=== PATIENT | male | born 1940 | race Caucasian/White ===

== ENCOUNTER 2017-02-15 16:07 | Observation (INO) ==
[2017-02-15] MEDS ORDERED: ASPIRIN 325 MG TABLET PO STA (17:16)
[2017-02-15] MEDS ORDERED: ENOXAPARIN 100 MG/ML SYRINGE SUBCUT STA (17:16)
[2017-02-15] MEDS ORDERED: MORPHINE 2 MG/1 ML SYRINGE IV PRN (17:16)
[2017-02-15] MEDS ORDERED: ONDANSETRON 4 MG/2 ML VIAL IV PRN ×2 (17:16→19:28)
[2017-02-15 17:22] LABS: Basophils % 0.3 % (0.0-0.8); Eosinophils # 0.2 10*3/uL (0.0-0.87); Eosinophils % 2.1 % (0.00-10.9); Hematocrit 39.8 VOL% (42.0-52.0); Hemoglobin 13.8 GM/DL (14.0-18.0); Immature Granulocytes % 0.4 %; Immature Granulocytes Absolute 0.03 #; Lymphocytes # 0.9 10*3/uL (1.4-4.0); Mean Corpuscular HGB Conc 34.7 GM/DL (32-36); Mean Corpuscular Hemoglobin 32 PG (27-34); Mean Corpuscular Volume 93.2 FL (87-102); Mean Platelet Volume 10.8 FL (9.6-12.0); Monocytes # 0.4 10*3/uL (0.11-0.8); Monocytes % 4.9 % (1.7-12.7); Neutrophils # 5.8 10*3/uL (1.4-7.4); Neutrophils % 80.3 % (38.7-73.9); Platelet Count 178 T/CUMM (130-400); Red Blood Count 4.27 MC/CUMM (3.8-5.5); Red Cell Distribution Width 13.1 % (9.3-17.3); White Blood Count 7.2 T/CUMM (4-12)
[2017-02-15] MEDS ORDERED: ASPIRIN 325 MG TABLET ONE (17:29)
[2017-02-15] MEDS ORDERED: ENOXAPARIN 80 MG/0.8 ML SYRINGE SUBCUT ONE (17:29)
[2017-02-15 17:35] LABS: Partial Thromboplastin Time 27.8 SECS (0-40)
[2017-02-15] MEDS ORDERED: ONDANSETRON 4 MG/2 ML VIAL ONE (17:39)
[2017-02-15] MEDS ORDERED: MORPHINE 2 MG/1 ML SYRINGE ONE (17:40)
[2017-02-15 17:45] LABS: Albumin 3.8 G/DL (3.4-5.0); Bilirubin,Total 0.4 MG/DL (0.2-1.0); Magnesium 2.2 MG/DL (1.8-2.4); Osmolality,Calculated 279.7 MOS/KG (273-304); Potassium 4.2 MMOL/L (3.5-5.1); Total Protein 7.4 G/DL (6.4-8.3); Troponin I Only 0.021 NG/ML (0.00-0.045)
[2017-02-15] MEDS ORDERED: ACETAMINOPHEN 325 MG TABLET PO PRN (19:28)
[2017-02-15] MEDS ORDERED: ALBUTEROL/IPRATROPIUM 3 ML NEB RESP TX PRN (19:28)
[2017-02-15] MEDS ORDERED: LEVOFLOXACIN INJ 500 MG in PREMIX 1 EACH IV ONE (19:28)
[2017-02-15 20:20] LABS: Apearance,Urine CLEAR (Clear); Bilirubin,Urine Negative (Negative); Blood, Urine Small mg/dL (Negative); Glucose,Urine (UA) Negative (Negative); Hyaline Casts,Urine 5 /LPF (0-3); Ketones,Urine Negative (Negative); Mucus,Urine Occasional /LPF (Occasional); Nitrite,Urine Negative (Negative); Protein,Urine 100 MG/DL; RBC,Urine 2 /HPF (0-4); Urine Color Yellow (Yellow); Urine Specific Gravity 1.019 (1.001-1.035); Urine Urobilinogen < 2.0 EU/DL (0.2-1.0); WBC,Urine 1 /HPF (0-6)
[2017-02-15 20:31] LABS: Troponin I Only 0.023 NG/ML (0.00-0.045)
[2017-02-15] MEDS: CARVEDILOL 3.125 MG TABLET PO SCH (23:41)
[2017-02-15] MEDS: SIMVASTATIN 40 MG TABLET PO SCH (23:41)
[2017-02-15] MEDS: FERROUS SULFATE 325 MG TABLET PO SCH (23:41)
[2017-02-16 02:26] LABS: Basophils % 0.3 % (0.0-0.8); Eosinophils # 0.1 10*3/uL (0.0-0.87); Eosinophils % 2.1 % (0.00-10.9); Hemoglobin 11.8 GM/DL (14.0-18.0); Immature Granulocytes % 0.3 %; Immature Granulocytes Absolute 0.02 #; Lymphocytes # 0.9 10*3/uL (1.4-4.0); Lymphocytes % 14.1 % (21.2-54.2); Mean Corpuscular HGB Conc 34.7 GM/DL (32-36); Mean Corpuscular Hemoglobin 32 PG (27-34); Mean Corpuscular Volume 93.2 FL (87-102); Mean Platelet Volume 10.9 FL (9.6-12.0); Monocytes # 0.4 10*3/uL (0.11-0.8); Monocytes % 6.6 % (1.7-12.7); Neutrophils # 4.7 10*3/uL (1.4-7.4); Neutrophils % 76.6 % (38.7-73.9); Platelet Count 140 T/CUMM (130-400); Red Blood Count 3.65 MC/CUMM (3.8-5.5); White Blood Count 6.2 T/CUMM (4-12)
[2017-02-16 03:16] LABS: Troponin I Only 0.029 NG/ML (0.00-0.045)
[2017-02-16 03:26] LABS: Calcium 8.1 MG/DL (8.5-10.1); Potassium 4.3 MMOL/L (3.5-5.1)
[2017-02-16 07:07] LABS: Troponin I Only 0.026 NG/ML (0.00-0.045)
[2017-02-16] MEDS: LEVOTHYROXINE 25 MCG TABLET PO SCH (09:20)
[2017-02-16] MEDS: amLODIPine 5 MG TABLET PO SCH (09:20)
[2017-02-16] MEDS: CARVEDILOL 3.125 MG TABLET PO SCH ×2 (09:20→20:50)
[2017-02-16] MEDS: ASPIRIN EC 81 MG TABLET PO SCH (09:20)
[2017-02-16] MEDS: FERROUS SULFATE 325 MG TABLET PO SCH ×2 (09:20→20:50)
[2017-02-16] MEDS: CLOPIDOGREL 75 MG TABLET PO SCH (09:20)
[2017-02-16] MEDS: BUDESONIDE/FORMOTEROL 160-4.5 INHALER 6 GM INH SCH (09:24)
[2017-02-16] MEDS ORDERED: MORPHINE 2 MG/1 ML SYRINGE IV ONE (12:05)
[2017-02-16] MEDS: ALBUTEROL/IPRATROPIUM 3 ML NEB RESP TX SCH ×2 (13:49→20:12)
[2017-02-16] MEDS ORDERED: LEVOFLOXACIN INJ 250 MG in PREMIX 1 EACH IV SCH (20:00)
[2017-02-16] MEDS: SIMVASTATIN 40 MG TABLET PO SCH (20:49)
[2017-02-17] MEDS: ALBUTEROL/IPRATROPIUM 3 ML NEB RESP TX SCH ×2 (01:25→07:18)
[2017-02-17] MEDS: BUDESONIDE/FORMOTEROL 160-4.5 INHALER 6 GM INH SCH ×2 (01:42→08:32)
[2017-02-17 06:37] LABS: Basophils % 0.4 % (0.0-0.8); Eosinophils # 0.2 10*3/uL (0.0-0.87); Eosinophils % 4.6 % (0.00-10.9); Hematocrit 34.7 VOL% (42.0-52.0); Immature Granulocytes % 0.2 %; Immature Granulocytes Absolute 0.01 #; Lymphocytes # 1.2 10*3/uL (1.4-4.0); Lymphocytes % 23.5 % (21.2-54.2); Mean Corpuscular HGB Conc 34.6 GM/DL (32-36); Mean Corpuscular Hemoglobin 32 PG (27-34); Mean Corpuscular Volume 93.5 FL (87-102); Mean Platelet Volume 10.9 FL (9.6-12.0); Monocytes # 0.3 10*3/uL (0.11-0.8); Monocytes % 6.8 % (1.7-12.7); Neutrophils # 3.2 10*3/uL (1.4-7.4); Neutrophils % 64.5 % (38.7-73.9); Platelet Count 149 T/CUMM (130-400); Red Blood Count 3.71 MC/CUMM (3.8-5.5); Red Cell Distribution Width 13.2 % (9.3-17.3)
[2017-02-17 07:05] LABS: Calcium 8.6 MG/DL (8.5-10.1); Osmolality,Calculated 283.1 MOS/KG (273-304); Potassium 4.3 MMOL/L (3.5-5.1)
[2017-02-17 07:55] VITALS: BP 153/83
[2017-02-17] MEDS: ASPIRIN EC 81 MG TABLET PO SCH (08:30)
[2017-02-17] MEDS: LEVOTHYROXINE 25 MCG TABLET PO SCH (08:30)
[2017-02-17] MEDS: FERROUS SULFATE 325 MG TABLET PO SCH (08:30)
[2017-02-17] MEDS: CLOPIDOGREL 75 MG TABLET PO SCH (08:30)
[2017-02-17] MEDS: amLODIPine 5 MG TABLET PO SCH (08:30)
[2017-02-17] MEDS: CARVEDILOL 3.125 MG TABLET PO SCH (08:30)
== END 2017-02-17 11:59 | disposition home or self-care (01) ==
LOC: N.EDINP 16:07 → N.ED 16:07 → N.2E 19:10
PROVIDERS: ADMIT Internal Medicine; ATTEND Internal Medicine

== ENCOUNTER 2017-04-23 17:35 | Inpatient (IN) ==
[2017-04-23 18:12] LABS: Basophils % 0.4 % (0.0-0.8); Eosinophils # 0.2 10*3/uL (0.0-0.87); Eosinophils % 3.3 % (0.00-10.9); Hematocrit 41.7 VOL% (42.0-52.0); Immature Granulocytes % 0.4 %; Immature Granulocytes Absolute 0.03 #; Lymphocytes # 1.1 10*3/uL (1.4-4.0); Lymphocytes % 16.2 % (21.2-54.2); Mean Corpuscular HGB Conc 33.6 GM/DL (32-36); Mean Corpuscular Hemoglobin 32 PG (27-34); Mean Corpuscular Volume 96.1 FL (87-102); Mean Platelet Volume 10.7 FL (9.6-12.0); Monocytes # 0.4 10*3/uL (0.11-0.8); Monocytes % 5.7 % (1.7-12.7); Neutrophils # 5.2 10*3/uL (1.4-7.4); Platelet Count 192 T/CUMM (130-400); Red Blood Count 4.34 MC/CUMM (3.8-5.5); Red Cell Distribution Width 13.6 % (9.3-17.3)
[2017-04-23 18:38] LABS: Calcium 9.3 MG/DL (8.5-10.1); Osmolality,Calculated 281.4 MOS/KG (273-304); Potassium 4.4 MMOL/L (3.5-5.1)
[2017-04-23] MEDS ORDERED: MAGNESIUM SULF RIDER 2 GM in PREMIX 1 EACH IV STA (20:41)
[2017-04-23] MEDS ORDERED: KETOROLAC 30 MG/1 ML VIAL IV STA (20:41)
[2017-04-23] MEDS ORDERED: methylPREDNISolone SOD SUC 125 MG/2 ML VIAL IV STA (20:41)
[2017-04-23] MEDS ORDERED: LEVOFLOXACIN INJ 750 MG in PREMIX 1 EACH IV STA (20:41)
[2017-04-23] MEDS ORDERED: ORPHENADRINE 60 MG/2 ML VIAL IV STA (20:41)
[2017-04-23] MEDS ORDERED: FUROSEMIDE 40 MG/4 ML VIAL IV STA (20:46)
[2017-04-23] MEDS ORDERED: ALBUTEROL 2.5 MG/3 ML NEB RESP TX SCH (21:00)
[2017-04-23] MEDS ORDERED: methylPREDNISolone SOD SUC 125 MG/2 ML VIAL ONE (21:09)
[2017-04-23] MEDS ORDERED: ORPHENADRINE 60 MG/2 ML VIAL ONE (21:09)
[2017-04-23] MEDS ORDERED: FUROSEMIDE 100 MG/10 ML VIAL ONE (21:09)
[2017-04-23] MEDS ORDERED: LEVOFLOXACIN INJ 150 ML IV ONE (21:09)
[2017-04-23] MEDS ORDERED: KETOROLAC 30 MG/1 ML VIAL ONE (21:09)
[2017-04-23] MEDS ORDERED: MAGNESIUM SULF RIDER 50 ML IV ONE (21:10)
[2017-04-23 21:17] LABS: INR 0.9; Partial Thromboplastin Time 26.4 SECS (0-40)
[2017-04-23 21:40] LABS: Troponin I Only < 0.015 NG/ML (0.00-0.045)
[2017-04-24] MEDS ORDERED: ONDANSETRON 4 MG/2 ML VIAL IV PRN (02:12)
[2017-04-24] MEDS ORDERED: NICOTINE 21 MG/24 HR PATCH TRANSDERM PRN (02:12)
[2017-04-24] MEDS ORDERED: ALBUTEROL/IPRATROPIUM 3 ML NEB RESP TX PRN (02:12)
[2017-04-24] MEDS: CLOPIDOGREL 75 MG TABLET PO SCH ×2 (03:02→20:43)
[2017-04-24] MEDS: amLODIPine 5 MG TABLET PO SCH ×2 (03:02→20:42)
[2017-04-24] MEDS: LEVOTHYROXINE 25 MCG TABLET PO SCH ×2 (03:02→20:43)
[2017-04-24] MEDS: FERROUS SULFATE 325 MG TABLET PO SCH ×2 (03:03→20:42)
[2017-04-24] MEDS: SIMVASTATIN 40 MG TABLET PO SCH ×2 (03:03→20:43)
[2017-04-24] MEDS: CARVEDILOL 3.125 MG TABLET PO SCH ×3 (03:03→20:43)
[2017-04-24] MEDS: ENOXAPARIN 40 MG/0.4 ML SYRINGE SUBCUT SCH (03:04)
[2017-04-24] MEDS: ALBUTEROL/IPRATROPIUM 3 ML NEB RESP TX SCH ×4 (04:55→20:12)
[2017-04-24] MEDS: methylPREDNISolone SOD SUC 40 MG/1 ML VIAL IV SCH ×2 (06:47→17:15)
[2017-04-24 06:53] LABS: Risk Ratio 3.07; Thyroid Stimulating Hormone 2.38 uIU/ml (0.358-3.74); VLDL CHOLESTEROL 11.4 MG/DL
[2017-04-24] MEDS: DOCUSATE SODIUM 100 MG CAPSULE PO SCH ×2 (08:53→20:43)
[2017-04-24] MEDS: PANTOPRAZOLE 40 MG TABLET PO SCH (08:53)
[2017-04-24 09:31] LABS: PT Patient Result 10.5 SECS; Partial Thromboplastin Time 28.7 SECS (0-40)
[2017-04-24] MEDS: ASPIRIN EC 81 MG TABLET PO SCH (20:43)
[2017-04-25] MEDS: methylPREDNISolone SOD SUC 40 MG/1 ML VIAL IV SCH ×3 (00:27→17:05)
[2017-04-25] MEDS: ALBUTEROL/IPRATROPIUM 3 ML NEB RESP TX SCH ×4 (01:10→19:44)
[2017-04-25] MEDS ORDERED: MORPHINE 2 MG/1 ML SYRINGE IV ONE (04:18)
[2017-04-25] MEDS ORDERED: MEPERIDINE 50 MG/1 ML VIAL IM ONE (07:00)
[2017-04-25] MEDS ORDERED: PROMETHAZINE 25 MG/1 ML VIAL IM ONE (07:00)
[2017-04-25] MEDS ORDERED: MIDAZOLAM 2 MG/2 ML VIAL ONE (07:02)
[2017-04-25] MEDS ORDERED: LIDOCAINE 1% 20 ML VIAL MISC INJ ONE (07:30)
[2017-04-25] MEDS ORDERED: LIDOCAINE 2% 20 ML VIAL RESP TX ONE (07:30)
[2017-04-25] MEDS ORDERED: MIDAZOLAM 2 MG/2 ML VIAL IV ONE (07:30)
[2017-04-25] MEDS: DOCUSATE SODIUM 100 MG CAPSULE PO SCH ×2 (10:22→21:21)
[2017-04-25] MEDS: CARVEDILOL 3.125 MG TABLET PO SCH ×2 (10:22→21:21)
[2017-04-25] MEDS: ENOXAPARIN 40 MG/0.4 ML SYRINGE SUBCUT SCH (10:22)
[2017-04-25] MEDS: PANTOPRAZOLE 40 MG TABLET PO SCH (10:22)
[2017-04-25] MEDS: DORNASE ALFA 2.5 MG/2.5 ML VIAL RESP TX SCH ×2 (10:28→19:54)
[2017-04-25] MEDS: CLOPIDOGREL 75 MG TABLET PO SCH (21:21)
[2017-04-25] MEDS: amLODIPine 5 MG TABLET PO SCH (21:21)
[2017-04-25] MEDS: FERROUS SULFATE 325 MG TABLET PO SCH (21:21)
[2017-04-25] MEDS: LEVOTHYROXINE 25 MCG TABLET PO SCH (21:21)
[2017-04-25] MEDS: ASPIRIN EC 81 MG TABLET PO SCH (21:22)
[2017-04-25] MEDS: SIMVASTATIN 40 MG TABLET PO SCH (21:26)
[2017-04-26] MEDS: ALBUTEROL/IPRATROPIUM 3 ML NEB RESP TX SCH ×2 (00:40→06:56)
[2017-04-26] MEDS: methylPREDNISolone SOD SUC 40 MG/1 ML VIAL IV SCH ×2 (00:55→08:34)
[2017-04-26] MEDS: DORNASE ALFA 2.5 MG/2.5 ML VIAL RESP TX SCH (06:56)
[2017-04-26 07:40] VITALS: BP 111/54
[2017-04-26] MEDS: PANTOPRAZOLE 40 MG TABLET PO SCH (08:34)
[2017-04-26] MEDS: ENOXAPARIN 40 MG/0.4 ML SYRINGE SUBCUT SCH (08:35)
[2017-04-26] MEDS: DOCUSATE SODIUM 100 MG CAPSULE PO SCH (08:35)
[2017-04-26] MEDS: CARVEDILOL 3.125 MG TABLET PO SCH (08:45)
== END 2017-04-26 11:16 | disposition home or self-care (01) | DRG 191 ==
LOC: N.ED 17:35 → N.EDINP 04-24 00:25 → N.2E 04-24 01:59
PROVIDERS: ADMIT Internal Medicine Geriatric Medicine; ATTEND Internal Medicine Geriatric Medicine
PROC: BRONCHB (2017-04-25 07:20)

== ENCOUNTER 2017-05-01 00:12 | Inpatient (IN) ==
[2017-05-01] MEDS ORDERED: MORPHINE 2 MG/1 ML SYRINGE IV STA (01:04)
[2017-05-01] MEDS ORDERED: FUROSEMIDE 100 MG/10 ML VIAL IV STA (01:04)
[2017-05-01] MEDS ORDERED: methylPREDNISolone SOD SUC 125 MG/2 ML VIAL IV STA (01:04)
[2017-05-01] MEDS ORDERED: FUROSEMIDE 40 MG/4 ML VIAL ONE (01:12)
[2017-05-01] MEDS ORDERED: MORPHINE 2 MG/1 ML SYRINGE ONE (01:12)
[2017-05-01] MEDS ORDERED: methylPREDNISolone SOD SUC 125 MG/2 ML VIAL ONE (01:13)
[2017-05-01] MEDS ORDERED: ALBUTEROL 2.5 MG/3 ML NEB RESP TX SCH (01:30)
[2017-05-01 01:37] LABS: Eosinophils # 0.2 10*3/uL (0.0-0.87); Eosinophils % 2.8 % (0.00-10.9); Hematocrit 37.2 VOL% (42.0-52.0); Hemoglobin 12.4 GM/DL (14.0-18.0); Immature Granulocytes % 1.1 %; Immature Granulocytes Absolute 0.08 #; Lymphocytes # 0.8 10*3/uL (1.4-4.0); Lymphocytes % 11.3 % (21.2-54.2); Mean Corpuscular HGB Conc 33.3 GM/DL (32-36); Mean Corpuscular Hemoglobin 32 PG (27-34); Mean Corpuscular Volume 96.1 FL (87-102); Mean Platelet Volume 11.3 FL (9.6-12.0); Monocytes # 0.5 10*3/uL (0.11-0.8); Monocytes % 7.3 % (1.7-12.7); Neutrophils # 5.8 10*3/uL (1.4-7.4); Neutrophils % 77.5 % (38.7-73.9); Platelet Count 141 T/CUMM (130-400); Red Blood Count 3.87 MC/CUMM (3.8-5.5); Red Cell Distribution Width 13.4 % (9.3-17.3); White Blood Count 7.4 T/CUMM (4-12)
[2017-05-01 01:49] LABS: INR 0.9; PT Patient Result 9.4 SECS
[2017-05-01 01:52] LABS: ABG Base Excess -2.4 MMOL/L (-2.5-2.5); ABG HCO3 22.4 MMOL/L (20-26); ABG Oxygen Saturation 98.4 % (95-100); ABG PCO2 37.4 MM HG (35-48); ABG PH 7.382 (7.35-7.45); ABG TCO2 19.7 MMOL/L (23-27)
[2017-05-01 02:04] LABS: Alanine Aminotransferase 14 U/L (16-61); Albumin 3.6 G/DL (3.4-5.0); Alkaline Phosphatase 102 U/L (45-117); Aspartate Amino Transferase 17 U/L (0-37); Blood Urea Nitrogen 30 MG/DL (7-18); Calcium 8.7 MG/DL (8.5-10.1); Glucose 110 MG/DL (74-106); Osmolality,Calculated 289.1 MOS/KG (273-304); Potassium 4.4 MMOL/L (3.5-5.1); Sodium 142 MMOL/L (136-145); Total Protein 6.8 G/DL (6.4-8.3); Troponin I Only 0.018 NG/ML (0.00-0.045)
[2017-05-01] MEDS ORDERED: MORPHINE 2 MG/1 ML SYRINGE IV PRN (03:30)
[2017-05-01] MEDS ORDERED: ONDANSETRON 4 MG/2 ML VIAL IV PRN (03:30)
[2017-05-01] MEDS ORDERED: ACETAMINOPHEN 325 MG TABLET PO PRN (03:30)
[2017-05-01 05:38] LABS: Basophils % 0.2 % (0.0-0.8); Eosinophils # 0.1 10*3/uL (0.0-0.87); Hematocrit 38.9 VOL% (42.0-52.0); Hemoglobin 13.6 GM/DL (14.0-18.0); Lymphocytes # 0.6 10*3/uL (1.4-4.0); Lymphocytes % 5.9 % (21.2-54.2); Mean Corpuscular Hemoglobin 33 PG (27-34); Mean Corpuscular Volume 93.5 FL (87-102); Mean Platelet Volume 11.5 FL (9.6-12.0); Monocytes # 0.2 10*3/uL (0.11-0.8); Monocytes % 2.3 % (1.7-12.7); Neutrophils # 8.7 10*3/uL (1.4-7.4); Neutrophils % 89.6 % (38.7-73.9); Platelet Count 168 T/CUMM (130-400); Red Blood Count 4.16 MC/CUMM (3.8-5.5); Red Cell Distribution Width 13.4 % (9.3-17.3); White Blood Count 9.7 T/CUMM (4-12)
[2017-05-01 06:07] LABS: Osmolality,Calculated 290.3 MOS/KG (273-304); Potassium 4.9 MMOL/L (3.5-5.1)
[2017-05-01] MEDS: ALBUTEROL/IPRATROPIUM 3 ML NEB RESP TX SCH ×3 (06:59→19:41)
[2017-05-01] MEDS ORDERED: CARVEDILOL 3.125 MG TABLET PO SCH (09:00)
[2017-05-01] MEDS: LEVOTHYROXINE 25 MCG TABLET PO SCH (09:55)
[2017-05-01] MEDS: methylPREDNISolone SOD SUC 40 MG/1 ML VIAL IV SCH ×2 (09:55→16:45)
[2017-05-01] MEDS: cefTRIAXone 1,000 MG in SYRINGE 1 EACH IV SCH (09:55)
[2017-05-01] MEDS: BUDESONIDE/FORMOTEROL 160-4.5 INHALER 6 GM INH SCH ×2 (09:55→21:20)
[2017-05-01] MEDS ORDERED: CLOPIDOGREL 75 MG TABLET PO SCH (21:00)
[2017-05-01] MEDS ORDERED: NON-FORMULARY MEDICATION (Omeprazole [Omeprazole] 20 MG) PO SCH (21:00)
[2017-05-01] MEDS ORDERED: amLODIPine 5 MG TABLET PO SCH (21:00)
[2017-05-01] MEDS: PANTOPRAZOLE 40 MG TABLET PO SCH (21:18)
[2017-05-01] MEDS: CARVEDILOL 6.25 MG TABLET PO SCH (21:18)
[2017-05-01] MEDS: ASPIRIN EC 81 MG TABLET PO SCH (21:19)
[2017-05-01] MEDS: FERROUS SULFATE 325 MG TABLET PO SCH (21:19)
[2017-05-01] MEDS: SIMVASTATIN 40 MG TABLET PO SCH (21:19)
[2017-05-02] MEDS: ALBUTEROL/IPRATROPIUM 3 ML NEB RESP TX SCH ×4 (00:18→19:42)
[2017-05-02] MEDS: methylPREDNISolone SOD SUC 40 MG/1 ML VIAL IV SCH ×4 (00:52→23:47)
[2017-05-02] MEDS ORDERED: PROMETHAZINE 25 MG/1 ML VIAL IM ONE (07:00)
[2017-05-02] MEDS ORDERED: MEPERIDINE 50 MG/1 ML VIAL IM ONE (07:00)
[2017-05-02] MEDS: LEVOTHYROXINE 25 MCG TABLET PO SCH (08:07)
[2017-05-02] MEDS ORDERED: LIDOCAINE 2% VISCOUS 100 ML BOTTLE SWISH/SPIT ONE (08:15)
[2017-05-02] MEDS ORDERED: LIDOCAINE 2% 20 ML VIAL RESP TX ONE (08:16)
[2017-05-02] MEDS ORDERED: MIDAZOLAM 2 MG/2 ML VIAL IV ONE (08:34)
[2017-05-02] MEDS ORDERED: LIDOCAINE 1% 20 ML VIAL MISC INJ ONE (08:40)
[2017-05-02] MEDS ORDERED: MIDAZOLAM 2 MG/2 ML VIAL ONE (08:58)
[2017-05-02] MEDS: CARVEDILOL 6.25 MG TABLET PO SCH ×2 (09:15→21:06)
[2017-05-02] MEDS: cefTRIAXone 1,000 MG in SYRINGE 1 EACH IV SCH (10:33)
[2017-05-02] MEDS: BUDESONIDE/FORMOTEROL 160-4.5 INHALER 6 GM INH SCH ×2 (13:00→21:06)
[2017-05-02] MEDS: FERROUS SULFATE 325 MG TABLET PO SCH (21:06)
[2017-05-02] MEDS: SIMVASTATIN 40 MG TABLET PO SCH (21:06)
[2017-05-02] MEDS: ASPIRIN EC 81 MG TABLET PO SCH (21:06)
[2017-05-02] MEDS: PANTOPRAZOLE 40 MG TABLET PO SCH (21:06)
[2017-05-03] MEDS: ALBUTEROL/IPRATROPIUM 3 ML NEB RESP TX SCH ×3 (00:50→13:30)
[2017-05-03] MEDS: LEVOTHYROXINE 25 MCG TABLET PO SCH (05:31)
[2017-05-03 06:21] LABS: Basophils % 0.1 % (0.0-0.8); Hematocrit 30.9 VOL% (42.0-52.0); Hemoglobin 10.5 GM/DL (14.0-18.0); Immature Granulocytes % 1.8 %; Lymphocytes # 0.5 10*3/uL (1.4-4.0); Lymphocytes % 4.3 % (21.2-54.2); Mean Corpuscular Hemoglobin 32 PG (27-34); Mean Corpuscular Volume 94.8 FL (87-102); Monocytes # 0.2 10*3/uL (0.11-0.8); Monocytes % 1.4 % (1.7-12.7); Neutrophils # 10.5 10*3/uL (1.4-7.4); Neutrophils % 92.4 % (38.7-73.9); Platelet Count 140 T/CUMM (130-400); Red Blood Count 3.26 MC/CUMM (3.8-5.5); Red Cell Distribution Width 13.6 % (9.3-17.3); White Blood Count 11.4 T/CUMM (4-12)
[2017-05-03 06:54] LABS: Calcium 8.1 MG/DL (8.5-10.1); Potassium 4.7 MMOL/L (3.5-5.1)
[2017-05-03 07:30] LABS: Band Neutrophils 2 % (0-10); Lymphocytes 1 % (20-55); Myelocytes 1 %; Segmented Neutrophils 96 % (50-85)
[2017-05-03 07:31] LABS: Platelet Estimate Normal; Total Cells Counted 100
[2017-05-03] MEDS: methylPREDNISolone SOD SUC 40 MG/1 ML VIAL IV SCH (10:08)
[2017-05-03] MEDS: CARVEDILOL 6.25 MG TABLET PO SCH (10:09)
[2017-05-03] MEDS: cefTRIAXone 1,000 MG in SYRINGE 1 EACH IV SCH (10:09)
[2017-05-03] MEDS: BUDESONIDE/FORMOTEROL 160-4.5 INHALER 6 GM INH SCH (10:09)
[2017-05-03 12:38] VITALS: BP 157/69
== END 2017-05-03 11:25 | disposition home health service (06) | DRG 190 ==
LOC: N.ED 00:12 → SUATTDRO 03:30 → N.EDINP 03:30 → N.4E 03:57
PROVIDERS: ADMIT Internal Medicine; ATTEND Internal Medicine